=== PATIENT | female | born 2000 | race Caucasian/White ===

== ENCOUNTER 2022-07-21 09:26 | Emergency (ER) | payer BC ==
[~2022-07-21] VITALS: Wt 72.6 kg
[2022-07-21 09:55] LABS: BILIRUBIN Negative (Negative); BLOOD Negative (Negative); CLARITY Cloudy (Clear); COLOR Yellow (Yellow); GLUCOSE Negative (Negative); KETONE Negative (Negative); LEUKO ESTERASE 2+ (Negative); NITRITE Negative (Negative)
[2022-07-21 10:06] LABS: BACTERIA 3+; EPITHELIAL CELLS 16-20; MUCOUS TRACE; WBC 41-50 wbc/hpf (0-5)
[2022-07-21 10:24] LABS: BASO % 0.6 % (0.0-1.0); EOS # 0.2 10*3/uL (0.0-0.4); EOS % 2.9 % (1.0-4.0); HEMATOCRIT 39.9 % (37.0-47.0); LYMPH # 2.3 10*3/uL (1.3-4.4); LYMPH % 34.3 % (27.0-41.0); MEAN CELL VOLUME 90.9 fl (81.0-99.0); MEAN CORPUSCULAR HGB 31.2 pg (27.0-31.0); MEAN CORPUSCULAR HGB CONC 34.3 g/dl (33.0-37.0); MEAN PLATELET VOLUME 9.7 fl (9.6-12.3); MONO # 0.4 10*3/uL (0.1-1.0); MONO % 6.2 % (3.0-9.0); NEUT # 3.7 10*3/uL (2.3-7.9); NEUT % 55.7 % (47.0-73.0); PLATELET COUNT AUTOMATED 326 10*3/uL (130-400); RED BLOOD COUNT 4.39 10*6/uL (4.10-5.10); RED CELL DISTRI WIDTH 11.5 % (0-14.5); WHITE BLOOD COUNT 6.6 10*3/uL (4.8-10.8)
[2022-07-21 10:41] LABS: ALKALINE PHOSPHATASE 51 U/L (45-117); BUN 11 mg/dl (7-24); CHLORIDE 112 mmol/L (98-107); CREATININE 0.69 mg/dL (0.55-1.02); POTASSIUM 3.8 mmol/L (3.5-5.1); SGOT/AST 14 IU/L (3-35); SGPT/ALT 26 U/L (12-78); SODIUM 142 mmol/L (136-145); TOTAL PROTEIN 7.6 gm/dL (6.4-8.2)
[2022-07-21] MEDS ORDERED: PYRIDIUM200 M1 PO (11:10)
[2022-07-21] MEDS ORDERED: SEPTDS PO (11:10)
== END 2022-07-21 11:18 | disposition home or self-care (01) ==
LOC: ED 09:26
PROVIDERS: Emergency Medicine
DX: R30.0 Dysuria (principal); Z91.041 Radiographic dye allergy status

== ENCOUNTER 2023-03-15 15:15 | Emergency (ER) | payer BC ==
[~2023-03-15] VITALS: Ht 167.6 cm; Wt 76.2 kg
[~2023-03-15 15:15] MED LIST: PYRIDIUM200 M1 PO; SEPTDS PO
[2023-03-15 16:03] LABS: BILIRUBIN Negative (Negative); BLOOD Negative (Negative); CLARITY Cloudy (Clear); COLOR Dark Yellow (Yellow); GLUCOSE Negative (Negative); KETONE 3+ (Negative); LEUKO ESTERASE 1+ (Negative); NITRITE Negative (Negative); PH 5.5 (4.5-8.0); SPECIFIC GRAVITY >= 1.030 (1.001-1.030)
[2023-03-15 16:18] LABS: BACTERIA 2+
[2023-03-15 16:19] LABS: MUCOUS 2+
[2023-03-15 16:40] LABS: BASO # 0.1 10*3/uL (0.0-0.1); BASO % 0.5 % (0.0-1.0); EOS % 0.2 % (1.0-4.0); HEMATOCRIT 37.1 % (37.0-47.0); LYMPH # 1.7 10*3/uL (1.3-4.4); LYMPH % 16.2 % (27.0-41.0); MEAN CELL VOLUME 88.3 fl (81.0-99.0); MEAN CORPUSCULAR HGB 31.2 pg (27.0-31.0); MEAN CORPUSCULAR HGB CONC 35.3 g/dl (33.0-37.0); MEAN PLATELET VOLUME 9.6 fl (9.6-12.3); MONO # 0.7 10*3/uL (0.1-1.0); MONO % 6.4 % (3.0-9.0); NEUT % 76.4 % (47.0-73.0); PLATELET COUNT AUTOMATED 326 10*3/uL (130-400); RED CELL DISTRI WIDTH 11.7 % (0-14.5); WHITE BLOOD COUNT 10.5 10*3/uL (4.8-10.8)
[2023-03-15 16:59] LABS: ALKALINE PHOSPHATASE 52 U/L (46-116); BUN 7 mg/dl (9-23); CHLORIDE 109 mmol/L (98-107); POTASSIUM 3.1 mmol/L (3.4-5.1); TOTAL PROTEIN 7.1 gm/dL (6.0-8.0)
[2023-03-15 17:00] LABS: SGPT/ALT < 7 U/L (10-49)
[2023-03-15] MEDS ORDERED: OMNICEF300 MG PO (17:10)
== END 2023-03-15 17:27 | disposition home or self-care (01) ==
LOC: ED 15:15
PROVIDERS: Student in an Organized Health Care Education/Training Program
DX: N39.0 Urinary tract infection, site not specified (principal); Z91.041 Radiographic dye allergy status; F17.200 Nicotine dependence, unspecified, uncomplicated

== ENCOUNTER 2023-07-03 04:07 | Emergency (ER) | payer BC ==
[~2023-07-03] VITALS: Ht 340.3 cm; Wt 70.8 kg
[~2023-07-03 04:07] MED LIST changes: +OMNICEF300 MG PO
[2023-07-03] MEDS ORDERED: LINZESS145 MC1 PO (04:22)
[2023-07-03] MEDS ORDERED: VENLAFAXINE HY150 M2 PO (04:22)
[2023-07-03] MEDS ORDERED: METHYLPHENIDATE PO (04:22)
[2023-07-03 04:53] LABS: BASO # 0.1 10*3/uL (0.0-0.1); BASO % 0.7 % (0.0-1.0); EOS # 0.1 10*3/uL (0.0-0.4); EOS % 1.8 % (1.0-4.0); LYMPH # 1.7 10*3/uL (1.3-4.4); LYMPH % 23.1 % (27.0-41.0); MEAN CELL VOLUME 89.2 fl (81.0-99.0); MEAN CORPUSCULAR HGB 31.4 pg (27.0-31.0); MEAN CORPUSCULAR HGB CONC 35.1 g/dl (33.0-37.0); MEAN PLATELET VOLUME 9.6 fl (9.6-12.3); MONO # 0.5 10*3/uL (0.1-1.0); MONO % 6.4 % (3.0-9.0); NEUT % 67.7 % (47.0-73.0); PLATELET COUNT AUTOMATED 320 10*3/uL (130-400); RED BLOOD COUNT 4.37 10*6/uL (4.10-5.10); RED CELL DISTRI WIDTH 11.6 % (0-14.5); WHITE BLOOD COUNT 7.4 10*3/uL (4.8-10.8)
[2023-07-03 05:04] LABS: ACT PARTIAL THROMBO TIME 26.7 SECONDS (20.0-32.1); INTERNATIONAL NORM RATIO 1.2 (2.0-3.5)
[2023-07-03 05:08] LABS: BILIRUBIN Negative (Negative); BLOOD 3+ (Negative); CLARITY Cloudy (Clear); COLOR Orange (Yellow); GLUCOSE Negative (Negative); KETONE Trace (Negative); LEUKO ESTERASE 1+ (Negative); NITRITE Negative (Negative); SPECIFIC GRAVITY >= 1.030 (1.001-1.030)
[2023-07-03 05:13] LABS: URINE AMPHETAMINES Negative (1000ng/ml); URINE BARBITURATES Negative (200ng/ml); URINE BENZODIAZEPINES Negative (200ng/ml); URINE CANNABINOIDS (THC) Positive (50ng/ml); URINE COCAINE Negative (300ng/ml); URINE METHADONE Negative (300ng/ml); URINE OPIATES Negative (300ng/ml); URINE PHENCYCLIDINE Negative (25ng/ml)
[2023-07-03 05:15] LABS: ALKALINE PHOSPHATASE 51 U/L (46-116); BUN 6 mg/dl (9-23); CHLORIDE 110 mmol/L (98-107); LIPASE 29 U/L (12-53); POTASSIUM 3.5 mmol/L (3.4-5.1); TOTAL PROTEIN 7.1 gm/dL (6.0-8.0)
[2023-07-03 05:16] LABS: BACTERIA 2+; EPITHELIAL CELLS 41-50; RBC 41-50 rbc/hpf (0-2)
[2023-07-03 05:17] LABS: SGPT/ALT < 7 U/L (10-49)
[2023-07-03] MEDS ORDERED: CIPRO500 MG PO (06:14)
[2023-07-03] MEDS ORDERED: VISTARIL50 MG PO (06:14)
== END 2023-07-03 06:17 | disposition home or self-care (01) ==
LOC: ED 04:07
PROVIDERS: Internal Medicine
DX: F12.929 Cannabis use, unspecified with intoxication, unspecified (principal); N39.0 Urinary tract infection, site not specified; R07.89 Other chest pain; R10.9 Unspecified abdominal pain; Z91.041 Radiographic dye allergy status; Z91.048 Other nonmedicinal substance allergy status; Z79.899 Other long term (current) drug therapy

== ENCOUNTER 2024-01-31 22:25 | Emergency (ER) | payer BC ==
[~2024-01-31] VITALS: Ht 167.6 cm; Wt 73.5 kg
[~2024-01-31 22:25] MED LIST changes: +CIPRO500 MG PO; +LINZESS145 MC1 PO; +METHYLPHENIDATE PO; +VENLAFAXINE HY150 M2 PO; +VISTARIL50 MG PO
[2024-01-31] MEDS ORDERED: PROPRANOLOL HCL20 MG PO (22:28)
== END 2024-02-01 00:20 | disposition left against medical advice (07) ==
LOC: ED 22:25
DX: F41.9 Anxiety disorder, unspecified (principal); R07.89 Other chest pain; R06.89 Other abnormalities of breathing; R00.0 Tachycardia, unspecified; Z91.041 Radiographic dye allergy status; Z91.048 Other nonmedicinal substance allergy status; Z79.2 Long term (current) use of antibiotics; Z79.899 Other long term (current) drug therapy